=== PATIENT | female | born 1960 ===

== ENCOUNTER 2021-03-29 17:09 | Emergency (ER) | payer MEDICARE ==
[~2021-03-29] VITALS: Ht 172.7 cm; Wt 68.2 kg
[2021-03-29 17:24] VITALS: BP 153/72
== END 2021-03-29 18:35 | disposition left against medical advice (07) ==
LOC: EMS 17:18
DX: R07.9 Chest pain, unspecified (principal); Z53.21 Procedure and treatment not carried out due to patient leaving prior to being seen by health care provider
CPT/HCPCS: 93005